=== PATIENT | female | born 1975 | race Caucasian/White ===

== ENCOUNTER 2016-07-18 13:56 | Emergency (ER) | payer OTHER ==
[~2016-07-18] VITALS: Ht 167.6 cm; Wt 63.5 kg
[~2016-07-18 13:56] MED LIST: AMBIEN 5 MG TABL5 M1 PO; BENADRYL25 MG PO; CLONAZEPAM PO; LATUDA60 MG PO; NABUMETONE 500500 M1 PO; PRAZOSIN 1 MG CA1 MG PO; PROZAC 20 MG20 MG PO; SEROQUEL XR 30300 MG PO; THIOTHIXENE5 M1 PO; TRAMADOL 50 MG50 MG; TRAZODONE HCL100 MG PO; VALIUM10 MG PO; VALIUM5 MG PO; VITAMIN D2000 UNIT PO; WELLBUTRIN SR150 MG PO; XANAX1 MG PO; ZANAFLEX4 MG PO; ZOLOFT50 MG PO; ZOLPIDEM TARTRA10 MG PO; [UNRECOGNIZED DRUG - OTHER]
[2016-07-18 14:38] LABS: ABSOLUTE NEUTROPHILS 6.3 thou/uL (1.4-8.2); BASOPHILS 0.7 % (0.0-2.0); EOSINOPHILS 0.3 % (0.0-3.0); HEMATOCRIT 44.4 % (37.0-47.0); HEMOGLOBIN 15.3 gm/dL (12.0-15.0); LYMPHOCYTES 20.7 % (24.0-44.0); MCH 31.7 pg (26.0-34.0); MCHC 34.4 g/dL (28.0-37.0); MONOCYTES 11.5 % (1.0-8.0); PLATELET COUNT 282 thou/uL (150-400); POLYS 66.8 % (36.0-66.0); RBC 4.82 mil/uL (4.20-5.00); RDW 13.6 % (10.5-14.5); WBC 9.4 thou/uL (4.0-11.0)
[2016-07-18 14:39] LABS: MANUAL DIFF NO
[2016-07-18 14:48] LABS: CALCIUM 9.1 mg/dL (8.5-10.1); CREATININE 1.1 mg/dL (0.6-1.0); POTASSIUM 3.2 mmol/L (3.5-5.1)
[2016-07-18 15:04] LABS: ALBUMIN 4.1 g/dL (3.4-5.0); TOTAL PROTEIN 6.9 g/dL (6.4-8.2)
[2016-07-18] MEDS ORDERED: ONDANSETRON HCL4 M2 PO (18:12)
[2016-07-18] MEDS ORDERED: PEPCID20 MG PO (18:12)
[2016-07-18] MEDS ORDERED: NORCO 5-325 TA1 EACH PO (18:23)
[2016-07-18 19:08] LABS: URINE BILIRUBIN 1+ (Negative); URINE BLOOD TRACE (Negative); URINE COLOR YELLOW; URINE GLUCOSE-RANDOM* NEGATIVE (Negative); URINE KETONES 2+ (Negative); URINE NITRITE NEGATIVE (Negative); URINE PROTEIN (DIPSTICK) NEGATIVE (Negative)
[2016-07-18 19:10] LABS: ICTOTEST (BILI CONFIRMATORY) Negative (Negative)
== END 2016-07-18 19:32 | disposition home or self-care (01) ==
LOC: ER 13:56
PROVIDERS: Physician Assistant
DX: N83.201 Unspecified ovarian cyst, right side (principal); K29.70 Gastritis, unspecified, without bleeding; E87.6 Hypokalemia; F17.210 Nicotine dependence, cigarettes, uncomplicated; F10.99 Alcohol use, unspecified with unspecified alcohol-induced disorder; Z88.8 Allergy status to other drugs, medicaments and biological substances

== ENCOUNTER → 2017-05-24 | Outpatient (CLI) | payer OTHER ==
[~2017-05-24] MED LIST changes: +NORCO 5-325 TA1 EACH PO; +ONDANSETRON HCL4 M2 PO; +PEPCID20 MG PO
== END ==
LOC: RAD 12:11
DX: M25.512 Pain in left shoulder (principal)

== ENCOUNTER 2017-08-14 16:53 | Emergency (ER) | payer OTHER ==
[~2017-08-14] VITALS: Ht 167.6 cm; Wt 65.8 kg
[2017-08-14 17:32] LABS: ABSOLUTE NEUTROPHILS 9.8 thou/uL (1.4-8.2); BASOPHILS 0.5 % (0.0-2.0); HEMATOCRIT 44.7 % (37.0-47.0); HEMOGLOBIN 15.1 gm/dL (12.0-15.0); LYMPHOCYTES 14.1 % (24.0-44.0); MCH 31.9 pg (26.0-34.0); MCHC 33.8 g/dL (28.0-37.0); MCV 94.5 fL (80.0-100.0); MONOCYTES 5.2 % (1.0-8.0); PLATELET COUNT 307 thou/uL (150-400); POLYS 80.2 % (36.0-66.0); RBC 4.73 mil/uL (4.20-5.00); RDW 14.3 % (10.5-14.5); WBC 12.2 thou/uL (4.0-11.0)
[2017-08-14 17:44] LABS: CREATININE 1.8 mg/dL (0.6-1.0); POTASSIUM 4.1 mmol/L (3.5-5.1)
[2017-08-14] MEDS ORDERED: ZOLOFT50 MG PO (17:48)
[2017-08-14 17:50] LABS: ALBUMIN 4.6 g/dL (3.4-5.0); TOTAL BILIRUBIN 0.7 mg/dL (<0.1-1.0)
[2017-08-14] MEDS ORDERED: THIOTHIXENE10 M1 PO (17:50)
[2017-08-14 19:14] LABS: URINE BLOOD 1+ (Negative); URINE CLARITY CLOUDY; URINE COLOR YELLOW; URINE GLUCOSE-RANDOM* NEGATIVE (Negative); URINE KETONES 1+ (Negative); URINE NITRITE-REFLEX NEGATIVE (Negative); URINE PROTEIN (DIPSTICK) 2+ (Negative); URINE SPECIFIC GRAVITY >= 1.030 (1.005-1.035); URINE UROBILINOGEN 0.2 E.U./dl (0.2-1.0)
[2017-08-14 19:15] LABS: URINE LEUKOCYTES-REFLEX TRACE (Negative)
[2017-08-14 19:16] LABS: ICTOTEST (BILI CONFIRMATORY) Negative (Negative); URINE BILIRUBIN NEGATIVE (Negative)
[2017-08-14 19:28] LABS: HYALINE CASTS 0-3 Few /LPF (None Seen); MUCUS 4-6 Moderate strn/LPF (None Seen); SQUAMOUS 4-10 Moderate /LPF (0-3)
[2017-08-14 19:29] LABS: AMORPHOUS URATES Moderate /LPF (None Seen); URINE WBC-REFLEX 6-15 Few /HPF (0-5)
[2017-08-14 19:30] LABS: CRYSTALS None Seen /LPF (None Seen); URINE RBC 3-10 Few /HPF (0-2)
[2017-08-14] MEDS ORDERED: ZOFRAN ODT4 MG PO (19:49)
[2017-08-14] MEDS ORDERED: PROMS25 WY RECTAL (19:49)
[2017-08-14] MEDS ORDERED: KEFLEX500 M1 PO (19:49)
== END 2017-08-14 19:53 | disposition home or self-care (01) ==
LOC: ER 16:53
PROVIDERS: Physician Assistant
DX: N39.0 Urinary tract infection, site not specified (principal); N17.9 Acute kidney failure, unspecified; E86.0 Dehydration; R06.02 Shortness of breath; F41.9 Anxiety disorder, unspecified; F32.9 Major depressive disorder, single episode, unspecified; F17.210 Nicotine dependence, cigarettes, uncomplicated; Z88.8 Allergy status to other drugs, medicaments and biological substances; Z88.1 Allergy status to other antibiotic agents

== ENCOUNTER 2019-01-17 13:29 | Emergency (ER) | payer OTHER ==
[~2019-01-17] VITALS: Ht 175.3 cm; Wt 61.2 kg
[~2019-01-17 13:29] MED LIST changes: +KEFLEX500 M1 PO; +PROMS25 WY RECTAL; +THIOTHIXENE10 M1 PO; +ZOFRAN ODT4 MG PO
[2019-01-17 15:02] LABS: URINE BLOOD 1+ (Negative); URINE CLARITY CLEAR; URINE COLOR YELLOW; URINE GLUCOSE-RANDOM* NEGATIVE (Negative); URINE KETONES 1+ (Negative); URINE LEUKOCYTES-REFLEX TRACE (Negative); URINE NITRITE-REFLEX NEGATIVE (Negative); URINE PROTEIN (DIPSTICK) 1+ (Negative); URINE SPECIFIC GRAVITY >= 1.030 (1.005-1.035); URINE UROBILINOGEN 0.2 E.U./dl (0.2-1.0)
[2019-01-17 15:02] LABS: ABSOLUTE NEUTROPHILS 13.7 thou/uL (1.4-8.2); BASOPHILS 0.4 % (0.0-2.0); EOSINOPHILS 0.1 % (0.0-3.0); HEMOGLOBIN 14.7 gm/dL (12.0-15.0); LYMPHOCYTES 10.6 % (24.0-44.0); MCH 31.3 pg (26.0-34.0); MCHC 33.3 g/dL (28.0-37.0); MCV 93.9 fL (80.0-100.0); MONOCYTES 4.2 % (1.0-8.0); PLATELET COUNT 291 thou/uL (150-400); POLYS 84.7 % (36.0-66.0); RBC 4.69 mil/uL (4.20-5.00); RDW 12.9 % (10.5-14.5); WBC 16.1 thou/uL (4.0-11.0)
[2019-01-17 15:04] LABS: ICTOTEST (BILI CONFIRMATORY) Negative (Negative); URINE BILIRUBIN NEGATIVE (Negative)
[2019-01-17 15:06] LABS: CALCIUM 9.6 mg/dL (8.5-10.1); CREATININE 1.2 mg/dL (0.6-1.0); POTASSIUM 3.6 mmol/L (3.5-5.1)
[2019-01-17 15:12] LABS: ALBUMIN 4.5 g/dL (3.4-5.0); DIRECT BILIRUBIN 0.1 mg/dL (<0.1-0.2); TOTAL BILIRUBIN 0.5 mg/dL (<0.1-1.0); TOTAL PROTEIN 7.9 g/dL (6.4-8.2)
[2019-01-17 15:16] LABS: AMORPHOUS URATES Many /LPF (None Seen); BACTERIA-REFLEX None Seen /HPF (None Seen); CALCIUM OXALATE 4-10 Moderate /LPF (None Seen); CASTS None Seen /LPF (None Seen); SQUAMOUS None Seen /LPF (0-3); URINE RBC 3-10 Few /HPF (0-2); URINE WBC-REFLEX 0-5 Rare /HPF (0-5)
[2019-01-17] MEDS ORDERED: MACROBID 100 M100 M2 PO (16:46)
[2019-01-17] MEDS ORDERED: ZOFRAN ODT4 MG PO (16:46)
[2019-01-17 17:15] VITALS: BP 157/74
[2019-01-18] MEDS ORDERED: PHENERGAN 25 MG25 M1 PO (12:39)
== END 2019-01-17 17:20 | disposition home or self-care (01) ==
LOC: ER 13:29
PROVIDERS: Nurse Practitioner
DX: N30.01 Acute cystitis with hematuria (principal); R11.2 Nausea with vomiting, unspecified; F20.9 Schizophrenia, unspecified; F32.9 Major depressive disorder, single episode, unspecified; F17.210 Nicotine dependence, cigarettes, uncomplicated; Z98.890 Other specified postprocedural states; Z90.721 Acquired absence of ovaries, unilateral; Z88.8 Allergy status to other drugs, medicaments and biological substances

== ENCOUNTER 2019-01-18 09:23 | Emergency (ER) | payer OTHER ==
[~2019-01-18] VITALS: Ht 167.6 cm; Wt 59.0 kg
[~2019-01-18 09:23] MED LIST changes: +MACROBID 100 M100 M2 PO
[2019-01-18 10:13] LABS: ABSOLUTE NEUTROPHILS 12.2 thou/uL (1.4-8.2); BASOPHILS 0.5 % (0.0-2.0); EOSINOPHILS 0.1 % (0.0-3.0); HEMATOCRIT 40.7 % (37.0-47.0); HEMOGLOBIN 13.7 gm/dL (12.0-15.0); LYMPHOCYTES 11.8 % (24.0-44.0); MCH 31.4 pg (26.0-34.0); MCHC 33.7 g/dL (28.0-37.0); MCV 93.2 fL (80.0-100.0); MONOCYTES 7.1 % (1.0-8.0); PLATELET COUNT 289 thou/uL (150-400); POLYS 80.5 % (36.0-66.0); RBC 4.37 mil/uL (4.20-5.00); WBC 15.2 thou/uL (4.0-11.0)
[2019-01-18 10:26] LABS: CALCIUM 9.6 mg/dL (8.5-10.1); CREATININE 1.1 mg/dL (0.6-1.0); POTASSIUM 3.1 mmol/L (3.5-5.1)
[2019-01-18 10:33] LABS: ALBUMIN 4.1 g/dL (3.4-5.0); TOTAL BILIRUBIN 0.6 mg/dL (<0.1-1.0); TOTAL PROTEIN 7.4 g/dL (6.4-8.2)
[2019-01-18] MEDS ORDERED: PHENERGAN 25 MG25 M1 PO (12:39)
[2019-01-18 13:36] VITALS: BP 106/73
[2019-01-19] MEDS ORDERED: VRAYLAR6 MG PO (10:56)
[2019-01-19] MEDS ORDERED: PHENERGAN 25 MG25 M1 PO (14:02)
== END 2019-01-18 13:37 | disposition home or self-care (01) ==
LOC: ER 09:23
PROVIDERS: Emergency Medicine Emergency Medical Services
DX: R10.84 Generalized abdominal pain (principal); E87.6 Hypokalemia; M54.9 Dorsalgia, unspecified; R11.2 Nausea with vomiting, unspecified; F20.9 Schizophrenia, unspecified; F32.9 Major depressive disorder, single episode, unspecified; F10.929 Alcohol use, unspecified with intoxication, unspecified; F17.210 Nicotine dependence, cigarettes, uncomplicated; Z79.899 Other long term (current) drug therapy; Z79.2 Long term (current) use of antibiotics; Z88.8 Allergy status to other drugs, medicaments and biological substances

== ENCOUNTER 2019-01-19 10:38 | Emergency (ER) | payer OTHER ==
[~2019-01-19] VITALS: Ht 167.6 cm; Wt 67.1 kg
[~2019-01-19 10:38] MED LIST changes: +PHENERGAN 25 MG25 M1 PO
[2019-01-19] MEDS ORDERED: VRAYLAR6 MG PO (10:56)
[2019-01-19 11:00] LABS: ABSOLUTE NEUTROPHILS 13.4 thou/uL (1.4-8.2); BASOPHILS 0.2 % (0.0-2.0); EOSINOPHILS 0.1 % (0.0-3.0); HEMATOCRIT 43.1 % (37.0-47.0); HEMOGLOBIN 14.6 gm/dL (12.0-15.0); LYMPHOCYTES 7.3 % (24.0-44.0); MCH 31.6 pg (26.0-34.0); MCHC 33.9 g/dL (28.0-37.0); MCV 93.2 fL (80.0-100.0); MONOCYTES 2.6 % (1.0-8.0); PLATELET COUNT 291 thou/uL (150-400); POLYS 89.8 % (36.0-66.0); RBC 4.63 mil/uL (4.20-5.00); RDW 12.8 % (10.5-14.5)
[2019-01-19 11:10] LABS: CALCIUM 9.5 mg/dL (8.5-10.1); CREATININE 1.2 mg/dL (0.6-1.0); POTASSIUM 3.7 mmol/L (3.5-5.1)
[2019-01-19 11:14] LABS: URINE BILIRUBIN 1+ (Negative); URINE BLOOD TRACE (Negative); URINE CLARITY CLEAR; URINE COLOR YELLOW; URINE GLUCOSE-RANDOM* NEGATIVE (Negative); URINE KETONES 3+ (Negative); URINE LEUKOCYTES-REFLEX NEGATIVE (Negative); URINE NITRITE-REFLEX NEGATIVE (Negative); URINE PROTEIN (DIPSTICK) TRACE (Negative); URINE SPECIFIC GRAVITY >= 1.030 (1.005-1.035); URINE UROBILINOGEN 0.2 E.U./dl (0.2-1.0)
[2019-01-19 11:15] LABS: ICTOTEST (BILI CONFIRMATORY) Positive (Negative)
[2019-01-19 11:16] LABS: ALBUMIN 4.4 g/dL (3.4-5.0); TOTAL BILIRUBIN 0.7 mg/dL (<0.1-1.0); TOTAL PROTEIN 7.7 g/dL (6.4-8.2)
[2019-01-19] MEDS ORDERED: PHENERGAN 25 MG25 M1 PO (14:02)
[2019-01-19 15:50] VITALS: BP 88/55
== END 2019-01-19 15:51 | disposition home or self-care (01) ==
LOC: ER 10:38
PROVIDERS: Physician Assistant
DX: R10.84 Generalized abdominal pain (principal); R11.2 Nausea with vomiting, unspecified; F20.9 Schizophrenia, unspecified; F32.9 Major depressive disorder, single episode, unspecified; F17.210 Nicotine dependence, cigarettes, uncomplicated; Z98.890 Other specified postprocedural states; Z90.721 Acquired absence of ovaries, unilateral; Z88.8 Allergy status to other drugs, medicaments and biological substances

== ENCOUNTER → 2019-10-13 | Outpatient (CLI) | payer OTHER ==
[~2019-10-13] MED LIST changes: +VRAYLAR6 MG PO
== END ==
LOC: RAD 11:24
PROVIDERS: ATTEND Nurse Practitioner
DX: M54.40 Lumbago with sciatica, unspecified side (principal); M41.84 Other forms of scoliosis, thoracic region

== ENCOUNTER 2019-10-26 16:16 | Emergency (ER) | payer OTHER ==
[~2019-10-26] VITALS: Ht 167.6 cm; Wt 72.6 kg
[2019-10-26 17:59] LABS: URINE BILIRUBIN NEGATIVE (Negative); URINE BLOOD TRACE (Negative); URINE CLARITY SL CLOUDY; URINE COLOR YELLOW; URINE GLUCOSE-RANDOM* NEGATIVE (Negative); URINE KETONES NEGATIVE (Negative); URINE LEUKOCYTES-REFLEX NEGATIVE (Negative); URINE NITRITE-REFLEX NEGATIVE (Negative); URINE PROTEIN (DIPSTICK) NEGATIVE (Negative); URINE SPECIFIC GRAVITY <= 1.005 (1.005-1.035); URINE UROBILINOGEN 0.2 E.U./dl (0.2-1.0)
[2019-10-26] MEDS ORDERED: TRAMADOL 50 MG50 MG PO (18:10)
[2019-10-26] MEDS ORDERED: METHOCARBAMOL500 M2 PO (18:10)
[2019-10-26 18:40] VITALS: BP 149/90
== END 2019-10-26 18:40 | disposition home or self-care (01) ==
LOC: ER 16:16
PROVIDERS: Emergency Medicine
DX: M54.6 Pain in thoracic spine (principal); M79.7 Fibromyalgia; F32.9 Major depressive disorder, single episode, unspecified; F20.9 Schizophrenia, unspecified; M19.90 Unspecified osteoarthritis, unspecified site; F17.210 Nicotine dependence, cigarettes, uncomplicated; Z98.890 Other specified postprocedural states; Z79.899 Other long term (current) drug therapy; Z88.8 Allergy status to other drugs, medicaments and biological substances